=== PATIENT | male | born 1970 | race Caucasian/White ===

== ENCOUNTER 2023-04-28 06:23 | Day surgery (SDC) | payer BC ==
[2023-04-21 14:10] LABS: BASOPHILS % (AUTO) 0.7 % (0-1); EOSINOPHILS # (AUTO) 0.1 X10'3 (0-0.9); EOSINOPHILS % (AUTO) 2.1 % (0-6); LYMPHOCYTES # (AUTO) 1.1 X10'3 (1.1-4.8); LYMPHOCYTES % (AUTO) 24.4 % (21-51); MEAN CORPUSCULAR HEMOGLOBIN 31.2 PG (27.0-31.0); MEAN CORPUSCULAR HGB CONC 33.8 g/dL (33.0-36.5); MEAN CORPUSCULAR VOLUME 92.3 FL (78-98); MEAN PLATELET VOLUME 9.6 FL (7.4-10.4); MONOCYTES # (AUTO) 0.6 X10'3 (0-0.9); MONOCYTES % (AUTO) 13.1 % (2-12); NEUTROPHILS # (AUTO) 2.8 X10'3 (1.8-7.7); NEUTROPHILS % (AUTO) 59.7 % (42-75); PRE OP HEMATOCRIT 41.5 % (42.0-52.0); PRE OP PLATELET COUNT 149 X10'3 (140-440); PRE OP WHITE BLOOD COUNT 4.7 10'3 (4.8-10.8); RED CELL DISTRIBUTION WIDTH 13.3 % (11.5-14.5)
[2023-04-21 14:19] LABS: ALBUMIN 3.8 G/DL (3.4-5.0); ALKALINE PHOSPHATASE 60 IU/L (46-116); BLOOD UREA NITROGEN 13 MG/DL (7-18); BUN/CREATININE RATIO 11.5 (10.0-20.0); CALCIUM 9.1 MG/DL (8.5-10.1); CHLORIDE 102 MMOL/L (99-107); CREATININE 1.13 MG/DL (0.60-1.10); PRE OP ALT 77 U/L (30-65); PRE OP ANION GAP 8 (8-16); PRE OP AST 37 U/L (10-37); PRE OP BILIRUB, TOTAL 0.6 MG/DL (0.0-1.0); PRE OP GLUCOSE 107 MG/DL (70-104); PRE OP SODIUM 137 MMOL/L (135-145); TOTAL CARBON DIOXIDE 27.1 MMOL/L (24-32); TOTAL PROTEIN 7.7 G/DL (6.4-8.2); eGFR 68 ML/MIN
[2023-04-28] VITALS (15 sets, daily range): BP systolic 92–145; BP diastolic 55–93; PULSE 73–88; RESP 14–25; TEMP 98.1; O2SAT 91–97
[~2023-04-28] VITALS: Ht 177.8 cm; Wt 125.6 kg
[~2023-04-28 06:23] MED LIST: LEVO75TA PO; ceFAZolin inj. 3,000 MG in normal saline 100ml IV soln 100 ML IV ONE; famotidine 20mg tablet PO ONE; ringers solution, lacted 1,000 ML IV SCH
[2023-04-28] MEDS ORDERED: BUPIVAcaine/PF 2.5mg/ml (0.25%) 10ml vial ONE ×2 (06:47→06:50)
[2023-04-28] MEDS ORDERED: LIDOcaine 1% 30ml preserv. free vial ONE (06:47)
[2023-04-28] MEDS ORDERED: BUPIVACAINE liposomal/PF 13.3 MG/ML vial IM ONE (06:51)
[2023-04-28] MEDS ORDERED: dexamethasone sod phosphate 10mg/ml inj ONE (08:32)
[2023-04-28] MEDS ORDERED: sevoflurane 250ml liquid IH ONE (08:32)
[2023-04-28] MEDS ORDERED: neostigmine methylsulfate 1 MG/ML 10ml vial ONE (08:32)
[2023-04-28] MEDS ORDERED: glycopyrrolate 0.2mg/ml inj ONE (08:32)
[2023-04-28] MEDS ORDERED: midazolam 1 mg/ML 2ml injection ONE (08:43)
[2023-04-28] MEDS ORDERED: fentaNYL/PF 50MCG/1 ML 2ML syringe ONE (08:43)
[2023-04-28] MEDS ORDERED: meperidine/PF 25mg/ml syringe ONE (08:47)
[2023-04-28] MEDS ORDERED: propofol inj 20 ML IV ONE (09:13)
[2023-04-28] MEDS ORDERED: LIDOcaine 2% (20mg/ml) 5ml vial ONE (09:13)
[2023-04-28] MEDS ORDERED: rocuronium 10mg/ml inj IV ONE (09:13)
[2023-04-28] MEDS ORDERED: labetalol 20mg/4ml (5mg/ml) syringe IV PRN (09:30)
[2023-04-28] MEDS ORDERED: proCHLORperazine 10 MG/2 ml inj IV PRN (09:30)
[2023-04-28] MEDS ORDERED: morphine 4 MG/ML inj SYRINge IV PRN (09:30)
[2023-04-28] MEDS ORDERED: ondansetron/PF 4mg/2ml inj IV PRN (09:30)
[2023-04-28] MEDS ORDERED: BUPIVAcaine/PF 2.5mg/ml (0.25%) 10ml vial IJ ONE (09:30)
[2023-04-28] MEDS ORDERED: enalaprilat dihydrate 2.5mg/2ml vial IV PRN (09:30)
[2023-04-28] MEDS ORDERED: ringers solution, lacted 1,000 ML IV SCH (09:30)
[2023-04-28] MEDS ORDERED: meperidine/PF 25mg/ml syringe IV PRN ×3 (09:30)
[2023-04-28] MEDS ORDERED: morphine 2 MG/ML inj. syringe IV PRN (09:30)
[2023-04-28] MEDS ORDERED: ondansetron/PF 4mg/2ml inj ONE (10:01)
[2023-04-28] MEDS ORDERED: albuterol 2.5 MG/3 ML nebule NEB ONE (10:10)
[2023-04-28] MEDS ORDERED: oxyCODONE/APAP 5-325mg tablet PO PRN (10:50)
== END 2023-04-28 11:56 | disposition home or self-care (01) ==
LOC: PAS 06:23
PROVIDERS: ATTEND Surgery
DX: K42.0 Umbilical hernia with obstruction, without gangrene (principal); G47.30 Sleep apnea, unspecified; E03.9 Hypothyroidism, unspecified; G43.909 Migraine, unspecified, not intractable, without status migrainosus; E66.01 Morbid (severe) obesity due to excess calories; Z68.39 Body mass index [BMI] 39.0-39.9, adult; Z98.890 Other specified postprocedural states; Z88.2 Allergy status to sulfonamides; Z88.1 Allergy status to other antibiotic agents; Z79.899 Other long term (current) drug therapy
CPT/HCPCS: 36415; 49592; 64488; 80053; 82948; 85025; 93005; 94640; 94760; C1781; C9290; J0690; J1100; J2175; J2250; J2405; J2704; J2710; J3010; J3490; J7030; J7120; Z7506; Z7508; Z7512; A4215; A4618

== ENCOUNTER 2024-12-06 08:50 | Outpatient (CLI) | payer BC ==
[~2024-12-06 08:50] MED LIST changes: -ceFAZolin inj. 3,000 MG in normal saline 100ml IV soln 100 ML IV ONE; -famotidine 20mg tablet PO ONE; -ringers solution, lacted 1,000 ML IV SCH
--- NOTE | 2024-12-06 09:44 | RADIOLOGY REPORT ---
CLINICAL HISTORY: OTHER INTRA-ABDOMINAL AND PELVIC SWELLING, MASS AND LUMP TECHNIQUE: CT of the abdomen and pelvis was performed without IV contrast. This exam was performed ac cording to our departmental dose optimization program. Up-to-date CT equipment and radiation dose red uction techniques are utilized as appropriate. CTDI 36.4 DLP 1393.6 COMPARISON: None FINDINGS: Abdomen/Pelvis: The adrenal glands, pancreas, spleen, gallbladder, kidneys, bladder, and prostate gland across and re markable. There is diffuse hepatic steatosis. The abdominal aorta is normal in course and caliber. There are no significant atherosclerotic calcifi cations. There is no free intraperitoneal air or fluid. There is no enlarged abdominal pelvic lymph node. There is no bowel wall thickening or dilatation. The appendix is normal. There is a small fat contain ing right periumbilical umbilical hernia. Open Other: The imaged lower thorax demonstrates minimal lower lung atelectasis and or scar. No acute osseous abnormality is evident. Impression: No acute noncontrast CT abnormality of the abdomen / pelvis. Diffuse hepatic steatosis.
== END 2024-12-06 23:59 | disposition home or self-care (01) ==
LOC: RAD 08:50
PROVIDERS: ATTEND Surgery
DX: K76.0 Fatty (change of) liver, not elsewhere classified (principal); R19.09 Other intra-abdominal and pelvic swelling, mass and lump
CPT/HCPCS: 74176